=== PATIENT | male | born 1990 | race Caucasian/White ===

== ENCOUNTER 2018-05-26 18:19 | Emergency (ER) | payer OTHER ==
--- NOTE | 2018-05-26 18:34 | EDPHY ---
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 Laceration to his thenar eminence and lateral to his 5th MCP. No foreign body sensation. No paresthesia. PHYSICAL EXAM (Prior to examination, patient consented to physical exam, hands were washed and my usual and customary physical exam procedures followed) 1) GENERAL: Well-developed, well-nourished, alert and oriented. Appears to be in no acute distress. 2) HEAD: Normocephalic 3) HEENT: sclera anicteric 4) LUNGS: Breathing comfortably. 5) SKIN: 1.5cm laceration lateral to the 5th MCP. Superficial linear. Flexor extensor function intact distally. FDP FDS function intact. Puncture wound measuring 3 mm to the thenar eminence. Not through and through. 6) MUSCULOSKELETAL: Musculoskeletal deficits. 7) NEUROLOGIC: Full sensation distally. Smoking Status: Current every day smoker Constitutional: Initial Vital Signs Temperature (C) 36.8 C 05/26/18 18:20 Heart Rate 58 L 05/26/18 18:20 Respiratory Rate 16 05/26/18 18:20 Blood Pressure 137/90 H 05/26/18 18:20 O2 Sat (%) 98 05/26/18 18:20 O2 Delivery Mode Room Air Allergies/Adverse Reactions: No Known Allergies Allergy (Verified 05/26/18 18:20) Home Medications: Medication Instructions Recorded NK [No Known Home Meds] 05/26/18 MDM/Departure - MDM Imaging Results: Imaging Impressions Hand X-Ray 05/26/18 18:25 Impression: Nothing acute identified. Images reviewed myself Procedures: Procedure: Laceration repair. I explained the indications, risks and benefits for both laceration repair and anesthetic administration. Verbal consent was obtained from the patient left. The laceration on the left hand was anesthetized using 0.5% bupivicaine without epinephrine. After anesthetic administered the patient was observed for a period of time and had no apparent adverse effects. The wound was cleaned, prepped, draped in normal sterile fashion and explored to its base. No foreign body seen, no foreign bodies palpated. There were no deep structures involved. No tendon injury was identified. The wound was repaired with 3 simple interrupted 5 O Prolene sutures . The wound repair was simple. The procedure was performed by myself. Patient has been informed that scarring will occur, although efforts have been made to minimize this. ED Course/Re-evaluation: Primary wound closure in the ER. The puncture wound on the thenar eminence will be allowed to heal via secondary intention. Sutures to be removed in 10 days. Usual and customary wound precautions and instructions provided. - Depart Disposition: Home, Routine, Self-Care Clinical Impression: Laceration of left hand Qualifiers: Encounter type: initial encounter Foreign body presence: without foreign body Qualified Code(s): S61.412A - Laceration without foreign body of left hand, initial encounter Condition: Good Instructions: Care For Your Stitches (ED), Laceration (ED) Additional Instructions: Return to the ER if you develop redness, swelling, discharge, warmth to the wound, red streaks going up your arm or any other symptoms that concern you. Referrals: Return, to the ER in 10 days for suture removal [Other] - 06/05/18
[2018-06-07 13:52] VITALS: BP 157/91
== END 2018-05-26 19:20 | disposition home or self-care (01) ==
PROC: 0HQGXZZ Repair Left Hand Skin, External Approach (ICD-10-PCS; principal; 2018-05-26)
DX: S61.412A Laceration without foreign body of left hand, initial encounter (principal); F17.200 Nicotine dependence, unspecified, uncomplicated; W25.XXXA Contact with sharp glass, initial encounter; Y99.0 Civilian activity done for income or pay